=== PATIENT | female | born 1990 | race Caucasian/White ===

== ENCOUNTER → 2022-09-16 | Outpatient (CLI) | payer OTHER, SELFPAY ==
[2022-09-16 15:39] LABS: Absolute Lymphocyte Count 1.91 X10^3/uL (0.83-4.51); Absolute Neutrophil Count 6.4 X10^3/uL (2.0-7.7); Basophil# 0.04 X10^3/uL; Basophil% 0.4 % (0-1); Eosinophil# 0.08 X10^3/uL; Eosinophils% 0.9 % (0-5); Hematocrit 38.1 % (37-47); Hemoglobin 12.8 g/dL (12.0-15.0); Lymphocyte # 1.91 X10^3/ul (0.83-4.51); Lymphocyte % 21.2 % (19-41); Mean Corp Hgb Conc 33.6 g/dL (32-36); Mean Corpuscular Hgb 31.2 pg (27.0-32.0); Mean Corpuscular Volume 92.9 fL (81-99); Mean Platelet Vol. 9.9 fl (6.2-12.0); Monocyte# 0.53 X10^3/uL; Monocyte% 5.9 % (0-10); NRBC Flagged by Analyzer 0 % (0-5); Neutrophil # 6.37 X10^3/uL (2.7-7.7); Neutrophil % 70.7 % (47-70); Platelet Count 307 K/mm3 (150-450); RBC Distribution Width CV 11.5 % (11.6-14.6); RBC Distribution Width SD 39.1 fl (35.1-43.9)
[2022-09-16 16:35] LABS: HIV - WCH Non-Reactive (Nonreactive); Hepatitis B Surface Antigen Non-Reactive (Nonreactive); Hepatitis C Antibody Non-Reactive (Nonreactive); Rubella IgG Reactive (Nonreactive); Syphilis Antibodies Non-reactive
[2022-09-18 07:08] LABS: V-Zoster IgG (Immunity) < 135 index (Immune >165)
[2022-09-22 14:09] LABS: HPV APTIMA, High Risk Negative (Negative)
== END | disposition home or self-care (01) ==
LOC: WOBLAB 14:31
PROVIDERS: Visit Provider Obstetrics & Gynecology
DX: Z34.81 Encounter for supervision of other normal pregnancy, first trimester (principal); Z3A.00 Weeks of gestation of pregnancy not specified
CPT/HCPCS: 36415; 85025; 86703; 86762; 86780; 86787; 86803; 87086; 87088; 87340; 87624; 88175; G0145

== ENCOUNTER → 2022-10-27 | Outpatient (CLI) | payer OTHER, SELFPAY | END | disposition home or self-care (01) | PROVIDERS: Visit Provider Student in an Organized Health Care Education/Training Program | DX: Z36.3 Encounter for antenatal screening for malformations (principal); Z3A.13 13 weeks gestation of pregnancy | CPT/HCPCS: 36415 ==

== ENCOUNTER → 2022-11-20 | Outpatient (CLI) | payer OTHER, SELFPAY | END | disposition home or self-care (01) | PROVIDERS: Visit Provider Obstetrics & Gynecology | DX: Z34.82 Encounter for supervision of other normal pregnancy, second trimester (principal); Z3A.00 Weeks of gestation of pregnancy not specified | CPT/HCPCS: 36415 ==

== ENCOUNTER → 2023-01-27 | Outpatient (CLI) | payer OTHER, SELFPAY ==
[2023-01-27 10:37] LABS: Absolute Lymphocyte Count 1.62 X10^3/uL (0.83-4.51); Absolute Neutrophil Count 8.1 X10^3/uL (2.0-7.7); Basophil# 0.05 X10^3/uL; Basophil% 0.5 % (0-1); Eosinophil# 0.11 X10^3/uL; Hematocrit 36.4 % (37-47); Hemoglobin 12.3 g/dL (12.0-15.0); Lymphocyte # 1.62 X10^3/ul (0.83-4.51); Lymphocyte % 15.4 % (19-41); Mean Corp Hgb Conc 33.8 g/dL (32-36); Mean Corpuscular Hgb 30.9 pg (27.0-32.0); Mean Corpuscular Volume 91.5 fL (81-99); Mean Platelet Vol. 9.8 fl (6.2-12.0); Monocyte# 0.44 X10^3/uL; Monocyte% 4.2 % (0-10); NRBC Flagged by Analyzer 0 % (0-5); Neutrophil # 8.08 X10^3/uL (2.7-7.7); Platelet Count 215 K/mm3 (150-450); RBC Distribution Width CV 12.6 % (11.6-14.6); RBC Distribution Width SD 41.2 fl (35.1-43.9); Red Blood Count 3.98 M/mm3 (4.2-5.4); White Blood Count 10.5 K/mm3 (4.4-11.0)
[2023-01-27 11:14] LABS: Glucose Challenge Gest 1H 50g 172 mg/dL (70-140)
[2023-01-27 11:47] LABS: HIV - WCH Non-Reactive (Nonreactive); Syphilis Antibodies Non-reactive
== END | disposition home or self-care (01) ==
PROVIDERS: Referring Provider Nurse Practitioner Women's Health; Visit Provider Nurse Practitioner Women's Health
DX: Z34.90 Encounter for supervision of normal pregnancy, unspecified, unspecified trimester (principal); Z3A.00 Weeks of gestation of pregnancy not specified
CPT/HCPCS: 36415; 82950; 85025; 86703; 86780

== ENCOUNTER → 2023-03-04 | Outpatient (CLI) | payer OTHER, SELFPAY ==
[2023-03-04 11:07] LABS: Glucose GTT-Gestation. Fasting 84 mg/dL (<105)
[2023-03-04 12:27] LABS: Glucose GTT-Gestational 1 Hr 197 mg/dL (<190)
[2023-03-04 13:56] LABS: Glucose GTT-Gestational 3 Hr 53 L (<145)
[2023-03-04 14:00] LABS: Glucose GTT-Gestational 2 Hr 129 mg/dL (<165)
== END | disposition home or self-care (01) ==
PROVIDERS: Referring Provider Nurse Practitioner Women's Health; Visit Provider Nurse Practitioner Women's Health
DX: Z13.1 Encounter for screening for diabetes mellitus (principal)
CPT/HCPCS: 36415; 82951; 82952

== ENCOUNTER → 2023-03-24 | Outpatient (CLI) | payer OTHER, SELFPAY ==
[2023-03-24 14:44] LABS: Group B Strep DNA By PCR Negative (Negative); Internal Control PASS; Probe Check PASS; Specimen Processing Control PASS
== END | disposition home or self-care (01) ==
LOC: LABSPEC 13:04
PROVIDERS: Visit Provider Registered Nurse
DX: Z34.90 Encounter for supervision of normal pregnancy, unspecified, unspecified trimester (principal); Z3A.00 Weeks of gestation of pregnancy not specified
CPT/HCPCS: 87081; 87653

== ENCOUNTER 2023-04-26 19:08 | Inpatient (IN) | payer BC, SELFPAY ==
--- OUTSIDE RECORDS SUMMARY | 2023-04-26 19:11 | XMS RPT_ITS | CCD ---
Author Name Unknown Address [facility] [place] [address] Organization [facility] Care Team Providers Care Plate Stacker Name Role Phone Nba Bunch MD Primary Care Provider [phone] PHYSICIAN, NONE Primary Care Physician Unavailab ARACELI Estrella Attending Unav ailable PHYSICIAN, NONE Primary Care Unavailable Nba Bunch MD Primary Care Provider [phone] NBA BUNCH Primary Care Unavailable JASMINE MCCOLLUM Attending Unavailable NBA BUNCH Primary Care Unavailable Medications Completed/Discontinued Medications Medication Drug Class(es) Dates Sig (Normalized) Sig (Original) amoxicillin 500 mg oral capsule (2 sources) Penicillin-class Antibacterial Start: 02-12-2023 take 1 capsule by mouth every twelve hours amoxicillin (AMOXIL) 500 mg capsule Take 1 capsule by mouth every 12 hours. 0 02/12/2023 Active Problems Problem Classification Problem Date Documented Date Episodic/Chronic Immunizations and screening for infectious disease (2 sources) Viral screening status; Translations: [Encounter for screening for other viral diseases] Episodic Inflammation; infection of eye (except that caused by tuberculosis or sexually transmitteddisease) (1 source) Acute conjunctivitis of right eye; Translations: [Unspecified acute conjunctivitis, right eye] 02-13-2023 Episodic Menstrual disorders (2 sources) Secondary amenorrhea; Translations: [Secondary amenorrhea] Onset: 09-16-2022 Chronic Other and delivery including normal (1 source) Onset: 07-12-2022 09-16-2022 Episodic Other upper respiratory infections (2 sources) Acute upper respiratory infection; Translations: [Acute upper respiratory infection, unspecified] 02-13-2023 Episodic Results Test Name Value Interpretation Reference Range Facil ity Vital Signs Date Time Vital Sign Value Performing Clinician Esa bunny 02-13-2023 09:43-0500 Body temperature 97 [degF] Shadi Humphreys MD Work Phone: [facility] 02-13-2023 09:43-0500 Body weight 89.36 kg Shadi Humphreys MD Work Phone: [facility] 02-13-2023 09:43-0500 Diastolic blood pressure 80 mm[Hg] Shadi Humphreys MD Work Phone: [facility] 02-13-2023 09:43-0500 Heart rate 106 /min Shadi Humphreys MD Work Phone: [facility] 02-13-2023 09:43-0500 Respiratory rate 18 /min Shadi Humphreys MD Work Phone: [facility] 02-13-2023 09:43-0500 SaO2% (BldA) [Mass fraction] 98 % Shadi Humphreys MD Work Phone: [facility] 02-13-2023 09:43-0500 Systolic blood pressure 124 mm[Hg] Shadi Humphreys MD Work Phone: [facility] 07-16-2021 12:49-0400 Body height 167.6 cm Jasmine Older [employer]HE[employer] BEADER.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 Work Phone: [facility] 07-16-2021 12:49-0400 Body weight 70.76 kg Jasmine Older [employer]OCHET BEADER.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 Work Phone: [facility] 07-16-2021 12:49-0400 Diastolic blood pressure 78 mm[Hg] Jasmine Older CROCHET BEADER.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 Work Phone: [facility] 07-16-2021 12:49-0400 Heart rate 90 /min Jasmine Older CROCHET BEADER.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 Work Phone: [facility] 07-16-2021 12:49-0400 Respiratory rate 14 /min Jasmine Older CROCHET BEADER.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 Work Phone: [facility] 07-16-2021 12:49-0400 SaO2% (BldA) [Mass fraction] 99 % Jasmine Older CROCHET BEADER.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 Work Phone: [facility] 07-16-2021 12:49-0400 Systolic blood pressure 112 mm[Hg] Jasmine Older CROCHET BEADER.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 Work Phone: [facility] Encounters Encounter Date Encounter Type Care Provider Facility Start: 04-09-2023 End: 04-09-2023 ambulatory NBA Garcia ALIVIA Facility:[facility] Start: 02-14-2023 Telephone encounter Lisa Richard CROCHET BEADER.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 Work Phone: [facility] Procedures Date Procedure Procedure Detail Performing Clinician Start: 02-13-2023 STREP A MOLECULAR (POC) Shadi Humphreys MD Work Phone: Start: 07-16-2021 Adult depression screening assessment Jasmine Older [employer]OCHET BEADER.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 Work Phone: Plan of Treatment Date Care Activity Detail Author Start: 01-27-2033 Urine microalbumin profile DTaP,Tdap,Td Vaccine (7 - Td or Tdap) [facility] Start: 02-13-2023 End: 02-27-2023 COVID & INFLUENZA A/B & RSV NAAT, ROUTINE COVID & INFLUENZA A/B & RSV NAAT, ROUTINE Microbiology Routine URI, acute Acute conjunctivitis of right eye, unspecified acute conjunctivitis type Sore throat Expected: 02/13/2023, Expires: 02/27/2023 [facility] Work Phone: Immunizations Immunization Date Immunization Notes Care Provider Wilmer byers 11-06-2000 measles, mumps and rubella virus vaccine Jasmine Older [employer]OCHET BEADER.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 Work Phone: [facility] 07-26-1993 diphtheria, tetanus toxoids and acellular pertussis vaccine Jasmine Older CROCHET BEADER.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 Work Phone: [facility] 07-26-1993 trivalent poliovirus vaccine, live, oral Jasmine Older CROCHET BEADER.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 Work Phone: [facility] 02-05-1990 diphtheria, tetanus toxoids and acellular pertussis vaccine Jasmine Older CROCHET BEADER.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 Work Phone: [facility] 02-05-1990 haemophilus influenz ae type b vaccine, HbOC conjugate Jasmine Older CROCHET BEADER.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 Work Phone: [facility] 02-05-1990 trivalent poliovirus vaccine, live, oral Jasmine Older CROCHET BEADER.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 Work Phone: [facility] 11-13-1989 measles, mumps and rubella virus vaccine Jasmine Older CROCHET BEADER.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 Work Phone: [facility] 01-28-1989 DTaP-Haemophilus influenzae type b conjugate vaccine Jasmine Older CROCHET BEADER.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 Work Phone: [facility] 1988 DTaP-Haemophilus influenzae type b conjugate vaccine Jasmine Older CROCHET BEADER.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 Work Phone: [facility] 1988 trivalent poliovirus vaccine, live, oral Jasmine Older CROCHET BEADER.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 Work Phone: [facility] 1990 DTaP-Haemophilus influenzae type b conjugate vaccine Jasmine Older CROCHET BEADER.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 Work Phone: [facility] 1988 trivalent poliovirus vaccine, live, oral Jasmine Older CROCHET BEADER.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 Work Phone: [facility] Payers Date Payer Category Payer Unknown [id number] 2022 Unknown MMO [employer] [id number] 2022-Present [phone] [address] [place] [address] Indemnity [id number] 2021 Unknown [facility] [id number] 2021-Present [phone] [address] [place], [place] [address] [id number] 1988 Unknown [id number] Social History Date Type Detail Facility Start: 03-19-2017 End: 02-13-2023 Tobacco smoking status NHIS Ex-smoker [facility] End: 03-19-2016 History of tobacco use Current smoker [facility] End: 03-19-2016 History of tobacco use Cigarette Smoker [facility] Start: 03-19-2017 End: 02-13-2023 Tobacco use and exposure Smokeless tobacco non-user [facility] Start: 07-16-2021 End: 02-13-2023 Alcohol intake Current drinker of alcohol (finding) [facility] Start: 03-12-2020 End: 07-16-2021 Alcohol intake [facility] Work Phone: Start: 1990 Sex Assigned At Not on file [facility] Start: 09-16-2022 Tobacco smoking status Never s moked tobacco (finding) [facility] Sex Assigned At Sex [facility] Start: 03-12-2020 End: 02-13-2023 Tobacco use panel [facility] Work Phone: Adult Depression Screening Assessment 0 [facility] Work Phone: Start: 02-13-2023 Tobacco Comment less than 1/2 pack per day [facility] Clinical Notes 09-12-2008 to 04-09-2023 Telephone Encounter - Jocelyne Pina Ma - 02/16/2023 10:49 AM ESTTelephone Encounter - Naomi Valladares - 02/14/2023 8:39 AM Shadi Mccartney MD - 02/13/2023 9:57 AM EST Note Date & Type Note Facility 04-09-2023 Note HNO ID: [id number] Author: JASMINE MCCOLLUM APRN.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 Service: ? Author Type: Nurse Practitioner Type: Progress Notes Filed: 04/09/2023 14:11 Note Text: CC: Patient presents with: Cough Head Congestion Sore Throat HPI Isabella Simons is a 32 year old female who presents today for above. She developed URI symptoms around two months ago. She was treated with Amoxicillin and all symptoms resolved except for sore throat and post nasal drainage. She is about 38 weeks . She started taking Mucinex today for her symptoms. Denies history of seasonal/environmental allergies or asthma. She does have frequent heartburn and reflux, treating with Pepcid daily. Denies any new or worsening symptoms over the past two months. Feeling well overall. Review of Systems Constitutional: Negative for chills, diaphoresis, fatigue, fever and unexpected weight change. HENT: Positive for postnasal drip, sinus pressure and sore throat. Negative for ear pain, sinus pain and trouble swallowing. Respiratory: Positive for cough (non-productice, worse in the mornings). Negative for chest tightness, shortness of breath and wheezing. Cardiovascular: Negative for chest pain and palpitations. PAST MEDICAL HISTORY Diagnosis Date Enlargement of lymph nodes 12/09/2007 Irritable bowel syndrome 09/12/2008 History reviewed. No pertinent surgical history. ALLERGIES Patient has no known allergies. MEDICATIONS multivitamin tablet Take 1 tablet by mouth once daily. FAMILY HISTORY Problem Relation Age of Onset No Known Problems Mother Liver Disease Father cirhossis other (other) Brother spina bifida/multiple handicaps Prostate Cancer Maternal Grandfather Ovarian cancer Paternal Grandmother Colon Cancer Paternal Grandfather Social History Tobacco Use Smoking status: Former Years: 1 Types: Cigarettes Quit date: 03/19/2016 Years since quittin.0 Smokeless tobacco: Never Tobacco comments: less than 1/2 pack per day Vaping Use Vaping Use: current everyday user Substances: Nicotine, Flavoring Substance Use Topics Alcohol use: Yes Alcohol/week: 27.3 standard drinks of alcohol Types: 21 Mixed Drinks per week Drug use: No BP 114/72 Pulse 111 Temp 36.7 ?C (98 ?F) (Temporal) Resp 18 Wt 98.4 kg (217 lb) LMP 10/19/2013 SpO2 98% BMI 35.02 kg/m? Physical Exam Vitals reviewed. Constitutional: Appearance: Normal appearance. She is not ill-appearing. HENT: Right Ear: Tympanic membrane normal. Left Ear: Tympanic membrane normal. Nose: No mucosal edema. Right Sinus: No maxillary sinus tenderness or frontal sinus tenderness. Left Sinus: No maxillary sinus tenderness or frontal sinus tenderness. Mouth/Throat: Lips: [place]. Mouth: Mucous membranes are moist. Pharynx: Posterior oropharyngeal erythema (mild) present. No pharyngeal swelling. Tonsils: No tonsillar exudate. Eyes: Conjunctiva/sclera: Conjunctivae normal. Cardiovascular: Rate and Rhythm: Normal rate and regular rhythm. Heart sounds: Normal heart sounds. No murmur heard. Pulmonary: Effort: Pulmonary effort is normal. Breath sounds: Normal breath sounds and air entry. No wheezing, rhonchi or rales. Musculoskeletal: Cervical back: Neck supple. Lymphadenopathy: Cervical: No cervical adenopathy. Skin: General: Skin is warm and dry. Neurological: Mental Status: She is alert. ASSESSMENT/PLAN: 1. Post-nasal drainage - ICD9: 473.9, ICD10: R09.82 (primary diagnosis) Differentials include allergic rhinitis, GERD, induced Start Flonase OTC. Increase pepcid to twice a day. Okay to continue with Mucinex Follow-up as needed for any new or worsening symptoms. 2. Sore throat - ICD9: 462, ICD10: J02.9 As above Prescription instructions reviewed with patient as applicable. Potential red flag symptoms discussed with the patient. Reviewed appropriate action plan to take if red flag symptoms occur. Patient agreeable to treatment plan. Jasmine Mccollum APRN.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 [facility] 02-16-2023 Miscellaneous Notes Pt notified. Jocelyne Pina Ma Left message for patient to return call. Naomi Valladares Negative for flu COVID and RSV please notify. If symptoms or not improving patient should follow-up with primary care documented in this encounter [facility] 02-13-2023 Note HNO ID: [id number] Author: Shadi Humphreys MD Service: ? Author Type: Physician Type: Progress Notes Filed: 02/13/2023 10:43 AM Note Text: Patient presents with: Nasal Congestion: x 8 days, chest congestion and cough x 5 days, right eye redness and drainage x today-7 months HPI: Feeling sick for 8 days. Positive symptoms: Cough, Nasal Congestion, Rhinorrhea, right eye discharge/irritation, Shortness of breath, Wheezing, Sore throat, Body Aches, sinus pressure, Chest tightness Negative symptoms: Chills, Nausea, Vomiting, Diarrhea, OTC: Mucinex, Tylenol, OB prescribed amoxicillin yesterday for sore throat (no strep test). Home COVID test negative 3 days ago. Currently 7 months , movement today. No Hx of asthma. PHx of smoking. PAST MEDICAL HISTORY Diagnosis Date Enlargement of lymph nodes 12/09/2007 Irritable bowel syndrome 09/12/2008 MEDICATIONS: Current Outpatient Medications Medication Sig multivitamin tablet Take 1 tablet by mouth once daily. amoxicillin (AMOXIL) 500 mg capsule Take 1 capsule by mouth every 12 hours. No current facility-administered medications for this visit. ALLERGIES: ALLERGIES No Known Allergies VITALS: BP 124/80 Pulse 106 Temp 36.1 ?C (97 ?F) Resp 18 Wt 89.4 kg (197 lb) LMP 10/19/2013 SpO2 98% BMI 31.80 kg/m? PHYSICAL EXAM: GEN: mildly ill appearing HEENT: PERRL, EOMI, left conjunctiva clear, moderate right conjunctival injection, watery discharge Ears: canals clear. TMs without erythema, bulge, or effusion Sinuses: non-tender frontal sinus, non-tender maxillary sinuses Throat: moist mucous membranes, mild erythema, no exudate Neck: supple, no thyromegaly, no lymphadenopathy HEART: regular rate and rhythm, no murmurs LUNGS: clear to auscultation, no wheezes or crackles after raspy cough, no increased WOB ASSESSMENT/PLAN: 1. URI, acute - ICD9: 465.9, ICD10: J06.9 (primary diagnosis) 2. Acute conjunctivitis of right eye, unspecified acute conjunctivitis type - ICD9: 372.00, ICD10: H10.31 3. Sore throat - ICD9: 462, ICD10: J02.9 - STREP A MOLECULAR (POC) - negative. Sore throat and conjunctivitis are likely viral symptoms. - suspect viral URI, differential includes COVID-19. - Discussed supportive care treatment with rest, OB approved cold medicine, and analgesia. She may continue amoxicillin for sinus symptoms not improving after 1 week which can represent secondary bacterial sinusitis. - Red flags to seek further treatment include chest pain, shortness of breath, and lethargy; in the ER if severe. - COVID AND INFLUENZA A/B AND RSV NAAT, ROUTINE [place] eye discussed. Infectious conjunctivitis is most commonly caused by cold viruses and is a self-limited condition which usually resolves in about a week. Bacterial conjunctivitis usually follows a similar course, but symptoms and contagiousness are responsive to antibiotics. Bacterial infection can rarely progress to more serious infection. Hand hygiene with washing or clinical courier is important to reduce spread of the infection. Seek re-evaluation for high fever, increasing periocular redness/swelling, eye pain, or vision change as these can be symptoms of serious infection. Shadi Humphreys MD [facility] 02-13-2023 History of Presen t illness Narrative Patient presents with: Nasal Congestion: x 8 days, chest congestion and cough x 5 days, right eye redness and drainage x today-7 months HPI: Feeling sick for 8 days. Positive symptoms: Cough, Nasal Congestion, Rhinorrhea, right eye discharge/irritation, Shortness of breath, Wheezing, Sore throat, Body Aches, sinus pressure, Chest tightness Negative symptoms: Chills, Nausea, Vomiting, Diarrhea, OTC: Mucinex, Tylenol, OB prescribed amoxicillin yesterday for sore throat (no strep test). Home COVID test negative 3 days ago. Currently 7 months , movement today. No Hx of asthma. PHx of smoking. PAST MEDICAL HISTORY Diagnosis Date Enlargement of lymph nodes 12/09/2007 Irritable bowel syndrome 09/12/2008 MEDICATIONS: Current Outpatient Medications Medication Sig multivitamin tablet Take 1 tablet by mouth once daily. amoxicillin (AMOXIL) 500 mg capsule Take 1 capsule by mouth every 12 hours. No current facility-administered medications for this visit. ALLERGIES: ALLERGIES No Known Allergies VITALS: BP 124/80 Pulse 106 Temp 36.1 C (97 F) Resp 18 Wt 89.4 kg (197 lb) LMP 10/19/2013 SpO2 98% BMI 31.80 kg/m PHYSICAL EXAM: GEN: mildly ill appearing HEENT: PERRL, EOMI, left conjunctiva clear, moderate right conjunctival injection, watery discharge Ears: canals clear. TMs without erythema, bulge, or effusion Sinuses: non-tender frontal sinus, non-tender maxillary sinuses Throat: moist mucous membranes, mild erythema, no exudate Neck: supple, no thyromegaly, no lymphadenopathy HEART: regular rate and rhythm, no murmurs LUNGS: clear to auscultation, no wheezes or crackles after raspy cough, no increased WOB ASSESSMENT/PLAN: 1. URI, acute - ICD9: 465.9, ICD10: J06.9 (primary diagnosis) 2. Acute conjunctivitis of right eye, unspecified acute conjunctivitis type - ICD9: 372.00, ICD10: H10.31 3. Sore throat - ICD9: 462, ICD10: J02.9 - STREP A MOLECULAR (POC) - negative. Sore throat and conjunctivitis are likely viral symptoms. - suspect viral URI, differential includes COVID-19. - Discussed supportive care treatment with rest, OB approved cold medicine, and analgesia. She may continue amoxicillin for sinus symptoms not improving after 1 week which can represent secondary bacterial sinusitis. - Red flags to seek further treatment include chest pain, shortness of breath, and lethargy; in the ER if severe. - COVID & INFLUENZA A/B & RSV NAAT, ROUTINE [place] eye discussed. Infectious conjunctivitis is most commonly caused by cold viruses and is a self-limited condition which usually resolves in about a week. Bacterial conjunctivitis usually follows a similar course, but symptoms and contagiousness are responsive to antibiotics. Bacterial infection can rarely progress to more serious infection. Hand hygiene with washing or clinical courier is important to reduce spread of the infection. Seek re-evaluation for high fever, increasing periocular redness/swelling, eye pain, or vision change as these can be symptoms of serious infection. Shadi Humphreys MD documented in this encounter [facility] 09-18-2022 Note . MICRO - Microbiology PROCEDURE: Urine Culture [*1] SOURCE: Urine, Clean Catch BODY SITE: COLLECTED DATE/TIME: 09/16/2022 10:48 EDT RECEIVED DATE/TIME: 09/16/2022 19:28 EDT START DATE/TIME: 09/16/2022 19:28 EDT FREE TEXT SOURCE: FINAL REPORTS Final Report [] Verified Date/Time/Personnel: 09/18/2022 07:44 EDT 10,000 - 50,000 cfu/ml Multiple bacterial morphotypes present. Probable Contamination. Suggest recollection if clinically indicated. PRELIMINARY REPORTS Preliminary Report [] Verified Date/Time/Personnel: 09/17/2022 10:24 EDT No growth to date Performing Locations *1: This test was performed at: [facility], [address] [place] [address], [facility] , [facility] ([place]) 07-16-2021 History of Presen t illness Narrative CC: Patient presents with: Physical: transfer from Dr. Escobar [facility] Isabella Simons is a 31 year old female who presents today for above. Denies any concerns or issues today. Hasn't been seen in primary care since 2008 Exercise- cardio, weights about 5-6 days per week Diet-overall healthy REVIEW OF SYSTEMS General: no fevers, no chills, no night sweats, no recurrent infections, no change in energy and no significant changes in weight HEENT: no frequent or significant headaches, no changes in hearing, no visual changes, no sinus or nasal problems Respiratory: no cough, no wheezing, no shortness of breath Cardiovascular: no chest pain, no chest pressure, no palpitations and no swelling GI: Negative for abdominal discomfort, blood in stools or black stools, change in bowel habit, heart burn, nausea, vomiting : Negative for dysuria, frequency, incontinence and nocturia >1 Musculoskeletal: Negative for joint pain or swelling, back pain or muscle pain Psych: Negative for sleep disturbance, mood disorder and recent psychosocial stressors PAST MEDICAL HISTORY Diagnosis Date Enlargement of lymph nodes 12/09/2007 Irritable bowel syndrome 09/12/2008 History reviewed. No pertinent surgical history. ALLERGIES Patient has no known allergies. MEDICATIONS No prescriptions on file. FAMILY HISTORY Problem Relation Age of Onset No Known Problems Mother Liver Disease Father cirhossis other (other) Brother spina bifida/multiple handicaps Prostate Cancer Maternal Grandfather Ovarian cancer Paternal Grandmother Colon Cancer Paternal Grandfather Social History Tobacco Use Smoking status: Former Smoker Years: 1.00 Types: Cigarettes Quit date: 03/19/2016 Years since quittin.3 Smokeless tobacco: Never Used Tobacco comment: less than 1/2 pack per day Vaping Use Vaping Use: current everyday user Substances: Nicotine, Flavoring Substance Use Topics Alcohol use: Yes Alcohol/week: 27.3 standard drinks Types: 21 Mixed Drinks per week Drug use: No PHYSICAL EXAM BP 112/78 Pulse 90 Resp 14 Ht 167.6 cm (5' 6 ) Wt 70.8 kg (156 lb) LMP 10/19/2013 SpO2 99% BMI 25.18 kg/m General Appearance: well appearing, in no acute distress, alert Pysch: mood and affect broad and appropriate Skin: Skin color, texture, turgor normal for age; Eyes: conjunctiva pink and moist, no icterus, sclera white, non-injected Neck: Thyroid normal size and symmetric without palpable nodules, Neck supple, No adenopathy Lymph nodes: No supraclavicular lymphadenopathy Lungs: Lungs clear to auscultation. No wheezing, rhonchi, rales. Heart: RRR without murmur, gallop, or rubs. No ectopy Abdomen: Abdomen soft, non-tender. Bowel sounds normal. No masses, organomegaly Ext: no edema in LE bilaterally, good distal pulses Health maintenance reviewed with patient: DTAP,TDAP,TD(6 - Tdap) due on 07/15/1999 HEPATITIS C SCREENING Never done HIV SCREENING Never done ONE PNEUMOVAX PRIOR TO AGE 65 Never done PAP TESTING Never done DEPRESSION SCREENING due on 03/19/2018 HPV TESTING Never done COVID-19 VACCINE(1) due on 07/16/2022 INFLUENZA(Season Ended) due on 12/04/2021 MENINGOCOCCAL CONJUGATE Aged Out DATA REVIEWED: Most recent labs ASSESSMENT/PLAN: 1. Wellness examination - ICD9: V70.0, ICD10: Z00.00 (primary diagnosis) - Counseled on healthy diet and regular exercise - Calcium intake with supplements or by diet of 1000 mg/day for under 50, 2281-1806 mg/day for 50+ - Counseled patient on limiting alcohol intake to 1 drink per day - Depression screening tool completed and reviewed with patient. Based on score and interview, patient is not at risk for depression and recommended no further intervention at this time. - Patient was counseled [id number] by myself (the billing provider) for the following immunizations and vaccine components, including side effects: COVID-19 and DTaP. Patient declined - Follow up for annual exam in one year 2. Special screening examination for viral disease - ICD9: V73.99, ICD10: Z11.59 - HEP C AB IA W/CONF SCRN 3. Encounter for well woman exam - ICD9: V72.31, ICD10: Z01.419 Patient pverdue for PAP/HPV - CONSULT TO [facility]OM[facility] 4. Screening for HIV (human immunodeficiency virus) - ICD9: V73.89, ICD10: Z11.4 - HIV 1 2 COMBO(AG/AB),WITH REFLEX TO DIFFERENTIATION Prescription instructions reviewed with patient as applicable. Potential red flag symptoms discussed with the patient. Reviewed appropriate action plan to take if red flag symptoms occur. Patient agreeable to treatment plan. Jasmine Mcguire APRN.CNP documented in this encounter [facility] documented as of this encounter (statuses as of 07/16/2021) [facility]06-10[facility]2009 History of Past illness Narrative* Problem Noted Date Diagnosed Date Resolved Date Irritable bowel syndrome 09/12/2008 Enlargement of lymph nodes 12/09/2007 0 07/16/2021 documented as of this encounter (statuses as of 02/13/2023) [facility] History of Past illness Narrative* Problem Noted Date Diagnosed Date Resolved Date Irritable bowel syndrome 09/12/2008 Enlargement of lymph nodes 12/09/2007 0 07/16/2021 documented as of this encounter (statuses as of 02/16/2023) [facility] Future Appointments Appointment Date:10/14/2022 10:00:00 AM Scheduled Provider:ARACELI ROWAN Location:[facility] Appointment Type: OV OB Routine Follow Up Future Scheduled Tests Laboratory* ABO/Rh (Gel) 09/16/22 * Type and Screen (AO) 09/16/22 * Hepatitis B Surface Antigen 09/16/22 * Rapid Plasma Reagin Test 09/16/22 * Rubella Antibody 09/16/22 * Complete Blood Count 09/16/22 * Hepatitis C Antibody IgG 09/16/22 * HIV 1/2 Ab 09/16/22 * Varicella Zoster Antibody 09/16/22 * Complete Metabolic Panel 09/16/22 * [facility] Send out (Blood Specimens) 09/16/22 * [facility] Send out (Blood Specimens) 09/16/22 [facility] Evaluation note* Diagnosis Wellness examination- Primary Special screening examination for viral disease Special screening examination for unspecified viral disease Encounter for well woman exam Screening for HIV (human immunodeficiency virus) Special screening examination for other specified viral diseases documented in this encounter [facility] Diagnosis URI, acute- Primary Acute upper respiratory infections of unspecified site Acute conjunctivitis of right eye, unspecified acute conjunctivitis type Sore throat Acute pharyngitis documented in this encounter [facility] course Narrative No data available for this section [facility] Hospital Discharge instructions No data available for this section [facility] Progress note No data available for this section [facility] Reason for Referral Specialty Diagnoses / Procedures Referred By Sai harris Referred To Contact Diagnoses Encounter for well woman exam Procedures CONSULT TO [facility]OM[facility]S [facility] OFFICE/OUTPATIENT [facility] 60-74 MINUTES Older, SANTI Ferraro.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 [address] [place] [address] Referral ID Status Reason Start Date Expiration Date Visits Requested Visits Authorized [id number] Pending Review PCP Requested Referral Auto-Generate d Referral 07/16/2021 07/16/2022 1 1 Summary Purpose Family History No Family History Records FoundNo Family History Records Found Advance Directives No Advanced Directives Records FoundNo Advanced Directives Records Found Health Concerns Infection Onset Date Last Indicated Resolved Time COVID-19 Rule-Out 02/13/2023 02/13/2023 Additional Source Comments Source Comments (unrecognize d section and content) In the event this informatio n is protected by the Federal Confidentiality of Alcohol and Drug Abuse Patient Records regulations: The Federal rules restrict any use of the information to criminally investigate or prosecute any alcohol or drug abuse patient.[facility] the event this information is protected by the Federal Confidentiality of Alcohol and Drug Abuse Patient Records regulations: The Federal rules restrict any use of the information to criminally investigate or prosecute any alcohol or drug abuse patient.[facility] the event this information is protected by the Federal Confidentiality of Alcohol and Drug Abuse Patient Records regulations: The Federal rules restrict any use of the information to criminally investigate or prosecute any alcohol or drug abuse patient.[facility] Reason for Visit (unrecogniz ed section and content) Specialty Diagnoses / Procedures Referred By Sai harris Referred To Contact Internal Medicine / INTERNAL MEDICINE Diagnoses Physical former pt of Dr Luz PRETTY Procedures 4C NEW WELL Self Older, Jasmine, CROCHET BEADER.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 [address] [place] [address] Referral ID Status Reason Start Date Expiration Date Visits Re quested Visits Authorized [id number] Denied 07/16/2021 10/14/2021 1 0 Reason Comments Nasal Congestion x 8 days, chest gem estion and cough x 5 days, right eye redness and drainage x today-7 months Reason Comments Results Care Teams (unrecognized sec tion and content) Plate Stacker Relationship Specialty Start Date End Date Nba Bunch MD [address] [place] [address] PCP - General Internal Medicine 07/16/21 Plate Stacker Relationship Specialty Start Date End Date Nba Bucnh MD [address] [place] [address] PCP - General Internal Medicine 07/16/21 INFORMATION SOURCE (unrecogn ized section and content) DATE CREATED AUTHOR AUTHOR'S ORGANIZ ATION 04/11/2023 [facility] FOR RECORDS PERTAINING TO PATIENTS WHO ARE OR HAVE BEEN ENROLLED IN A CHEMICAL DEPENDENCY/SUBSTANCEABUSE PROGRAM, SOME INFORMATION MAY BE OMITTED. This clinical summary was aggregated from multiple sources. Caution should be exercised in using it in the provision of clinical care. This summary normalizes information from multiple sources, and as a consequence, information in this document may materially change the coding, format and clinical context of patient data. In addition, data may be omitted in some cases. CLINICAL DECISIONS SHOULD BE BASED ON THE PRIMARY CLINICAL RECORDS. [employer] provides no warranty or guarantee of the accuracy or completeness of information in this document.
[2023-04-26 19:25] VITALS: TEMP 37.7; O2SAT 97
[2023-04-26 19:26] VITALS: BP 130/79; PULSE 117
[2023-04-26] MEDS: Lactated Ringers 1,000 ML 50 ML IV (19:40)
[2023-04-26] MEDS: 0.9% Saline Lock 10 ML Syringe IV (19:40)
[2023-04-26 19:50] VITALS: BMI 35.9
[2023-04-26 19:58] LABS: Absolute Lymphocyte Count 1.67 X10^3/uL (0.83-4.51); Basophil# 0.05 X10^3/uL; Basophil% 0.4 % (0-1); Eosinophil# 0.02 X10^3/uL; Eosinophils% 0.1 % (0-5); Hematocrit 43.4 % (37-47); Hemoglobin 14.9 g/dL (12.0-15.0); Lymphocyte # 1.67 X10^3/ul (0.83-4.51); Lymphocyte % 12.3 % (19-41); Mean Corp Hgb Conc 34.3 g/dL (32-36); Mean Corpuscular Hgb 30.8 pg (27.0-32.0); Mean Corpuscular Volume 89.7 fL (81-99); Mean Platelet Vol. 11.2 fl (6.2-12.0); Monocyte# 0.67 X10^3/uL; Monocyte% 4.9 % (0-10); NRBC Flagged by Analyzer 0 % (0-5); Neutrophil # 11.01 X10^3/uL (2.7-7.7); Neutrophil % 81.3 % (47-70); Platelet Count 239 K/mm3 (150-450); RBC Distribution Width CV 12.6 % (11.6-14.6); RBC Distribution Width SD 41.3 fl (35.1-43.9); Red Blood Count 4.84 M/mm3 (4.2-5.4); White Blood Count 13.6 K/mm3 (4.4-11.0)
[2023-04-26] MEDS: miSOPROStol 25 MCG TABLET VAGINAL (20:07)
[2023-04-26 20:46] LABS: Syphilis Antibodies Non-reactive
[2023-04-27] VITALS (46 sets, daily range): BP systolic 82–150; BP diastolic 51–96; PULSE 64–122; RESP 16–18; TEMP 36.2–37.5; O2SAT 77–100
[2023-04-27] MEDS: miSOPROStol 25 MCG TABLET VAGINAL ×2 (00:08→04:11)
--- NOTE | 2023-04-27 04:12 | HP.PCM.OB_ITS ---
HPI - General General Date of Admission: 04/26/23 Date of Service: 04/26/23 Chief Complaint: induction of labor HPI Narrative HUSSAIN HERNANDEZ, is a 32 F who presents at 41.1 for postdates induction. no vb/ctx/lof. good fm. Maternal Data Information PARMINDER Calculator Estimated Delivery Date Method Current WG Current Estimate 04/18/23 LMP (Certain) 41w 2d PFSH PFSH Medical History (Updated 04/27/23 @ 04:14 by Leny Porter CNM) Anxiety Depression Home Medications PNV-iron 29 mg-folic acid 1 dd-brxtl-1-dha 200 mg oral combo pack 1 pkg PO DAILY 12/11/22 [History Last Taken 04/25/23 08:00 1 pkg] Allergy/AdvReac Type Severity Reaction Status Date / Time No Known Allergies Allergy Verified 04/26/23 20:10 Family History Grandmother Ovarian cancer Grandfather FH: prostate cancer Social History adopted: No number of children: 1 sexually active: Yes Smoking Status: Former smoker alcohol intake: former details: not while substance use type: does not use caffeine: Yes History 1 Elective abortions Hx Para 0 Spontaneous abortions Hx # Term Pregnancies Ectopic pregnancies Hx # Pregnancies Multiple births # of living children Visit Details Expected Delivery Route/Plan Labor Preferences- CB/BF classes: encouraged labor support person: Doug labor intervention preferences: none pain management options preferred: epidural cut cord/dad catch: no : yes PP control planned: discussed discussed possible routes of delivery and associated risks: [] special requests: [] Plans Covid status: [] Flu vaccine: declines Tdap vaccine: given 01/27/23 Rhogam: NA LARC form signed: yes Problem list reviewed and updated with the most current plan of care details and appropriate orders placed. Relevant counseling for the gestational age provided. Continue routine care and follow up unless otherwise noted in visit notes/problem list details OB Flowsheet Initial Weight: Not Recorded Date -?-?-?-?-?-?-?-?-?-?-?-?- EGA Weight BP Urine Prot -?-?-?-?-?-?-?-?-?-?-?-?- Glucose FHR FuHt Pres Dilation -?-?-?-?-?-?-?-?-?-?-?-?- Effaced St Visit Note 12/18/22 -?-?-?-?-?-?-?-?-?-?-?-?- 22w 5d 188 lb 4 oz 100/67 Nega tive -?-?-?-?-?-?-?-?-?-?-?-?- Negative 138 22 -?-?-?-?-?-?--?-?-?-?-?-?- LC- [facility] from [facility]. anatomy completed last week, to obtain report. LC- KYLA[facility] from [facility]. no vb/ cramping. oriented to practice. no concerns. + fm 01/13/23 -?-?-?-?-?-?-?-?-?-?-?-?- 26w 3d 195 lb 8 oz 118/84 Nega tive -?-?-?-?-?-?-?-?-?-?-?-?- Negative 149 -?-?-?-?-?-?-?-?-?-?-?-?- MH-No VB, LOF. G oadrianne FM. Has nasal congestion, hdout for OB meds given. FF. Larc 01/27/23 -?-?-?-?-?-?-?-?-?-?-?-?- 28w 3d 198 lb 4 oz 124/82 Nega tive -?-?-?-?-?-?-?-?-?-?-?-?- Negative 147 28 -?-?-?-?-?-?-?-?-?-?-?-?- MH-NO VB, LOF. G ood FM. Tdap given. Needs 3 hr GTT 02/12/23 -?-?-?-?-?-?-?-?-?-?-?-?- 30w 5d 197 lb 4 oz 114/74 Nega tive -?-?-?-?-?-?-?-?-?-?-?-?- Negative 134 30 -?-?-?-?-?-?-?-?-?-?-?-?- JV- pt has a sor e throat and a cough that is getting worse. covid swab was negative. still needs a 3 hr. amoxicillin ordered. 02/23/23 -?-?-?-?-?-?-?-?-?-?-?-?- 32w 2d 202 lb 2 oz 112/76 Nega tive -?-?-?-?-?-?-?-?-?-?-?-?- Negative 145 31 -?-?-?-?-?-?-?-?-?-?-?-?- KW-no vb/lof/craniologist mping. good fm. discussed getting 3 hour done, plans to do it 03/11/23 -?-?-?-?-?-?-?-?-?-?-?-?- 34w 4d 206 lb 4 oz 111/78 Nega tive -?-?-?-?-?-?-?-?-?-?-?-?- Negative 145 34 -?-?-?-?-?-?-?-?-?-?-?-?- kw-no vb/lof/ctx . good fm. passed 3 hour gct. 03/24/23 -?-?-?-?-?-?-?-?-?-?-?-?- 36w 3d 208 lb 6 oz 115/75 Nega tive -?-?-?-?-?-?-?-?-?-?-?-?- Negative 150 36 -?-?-?-?-?-?-?-?-?-?-?-?- LC- no vb/ctx/lo f. good fm. gbs collected. LC- no vb/ctx/lof. good fm. gbs collected. traveling to [place],precautions given. 04/01/23 -?-?-?-?-?-?-?-?-?-?-?-?- 37w 4d 215 lb 122/76 Negative -?-?-?-?-?-?-?-?-?-?-?-?- Negative 150 38 Cephalic -?-?-?-?-?-?-?-?-?-?-?-?- SM- no vb lof go od fm no regular ctx 04/09/23 -?-?-?-?-?-?-?-?-?-?-?-?- 38w 5d 219 lb 124/76 -?-?-?-?-?-?-?-?-?-?-?-?- 135 39 Cephalic -?--?-?-?-?-?-?-?-?-?-?-?- LC- no vb/ctx/lo f. good fm. LC- no vb/ctx/lof. good fm.n o concerns today. 04/14/23 -?-?-?-?-?-?-?-?-?-?-?-?- 39w 3d 216 lb 8 oz 124/82 Nega tive -?-?-?-?-?-?-?-?-?-?-?-?- Negative 137 39.5 Cephalic -?-?-?-?-?-?-?-?-?-?-?-?- JV- no lof, vagi nal bleeding, or dec fm. discussed 41 week IOL 04/21/23 -?-?-?-?-?-?-?-?-?-?-?-?- 40w 3d 218 lb 113/74 Negative -?-?-?-?-?-?-?-?-?-?-?-?- Negative 145 40 Cephalic 0 -?-?-?-?-?-?-?-?-?-?-?-?- JV- no lof, vagi nal bleeding, or dec fm. planning IOL wednesday if l&d available. NST FHR Rate Baby A Baseline: 130 Variability:: Moderate Accelerations:: 15 x 15 Decelerations:: None NST Reactive:: Yes FHR Category:: Category I Uterine Activity:: irregular ROS Cardiovascular Cardiovascular: Denies abdominal pain, chest pain, diaphoresis or dyspnea Respiratory/Chest Respiratory/Chest: Denies change in mental status, chest congestion, chest tightness, cough, shortness of breath at rest, shortness of breath with exertion, breast mass, breast pain, breast skin changes, breast swelling, change in breast shape or nipple discharge Genitourinary Genitourinary: Reports change in urinary stream Musculoskeletal Musculoskeletal: Reports none Integumentary Integumentary: Reports none Neurologic Neurologic: Reports none Psychiatric Psychiatric: Reports none Endocrine Endocrinology: Reports none Hematologic/Lymphatic Hematologic/Lymphatic: Reports none Allergic/Immunologic Allergic/Immunologic: Reports none Vital Signs Vital Signs Vital Signs: 04/26/23 19:25 04/26/23 19:26 04/26/23 19:26 Temperature Temperature Source Temporal Pulse Rate 117 H Blood Pressure 130/79 H BP Systolic 130 BP Diastolic 79 Pulse Ox 04/26/23 19:25 04/26/23 19:25 04/27/23 00:06 Temperature 99.8 F H Temperature Source Tympanic Pulse Rate Blood Pressure BP Systolic BP Diastolic Pulse Ox 97 04/27/23 00:06 04/27/23 00:06 04/27/23 00:06 Temperature Temperature Source Pulse Rate 86 Blood Pressure 126/76 H BP Systolic 126 BP Diastolic 76 Pulse Ox 99 04/27/23 00:06 Temperature 99.1 F Temperature Source Pulse Rate Blood Pressure BP Systolic BP Diastolic Pulse Ox Weight Weight: 222 lb 10.67 oz Body Mass Index (BMI) 35.9 Physical Exam Const alert, oriented x3 and no apparent distress General Appearance: cooperative, comfortable and well kempt Orientation / Consciousness: awake and oriented to person Exam Limitations: no limitations HEENT normocephalic Neck full ROM Resp normal respiratory effort, normal air movement and no retractions Effort and Inspection: able to speak in complete sentences and symmetric chest movement Cardio regular rate and regular rhythm Peripheral Pulses: pulses 2+ throughout GI Inspection: gravid Manual OB Exam: estimated gestational size appropriate and presentation cephalic Uterus Palpation: Negative for uterus tender Extremity normal to inspection Skin no rashes or lesions noted Neuro deep tendon reflexes 2+ bilaterally and gait normal Motor Exam: strength 5/5 throughout and clonus absent Psych Activity / Motor Behavior: appropriate eye contact Speech: normal speech Labs Labs Labs: Blood Type O POSITIVE Antibody Screen NEGATIVE Hct 43.4 % (37-47) Hgb 14.9 g/dL (12.0-15.0) Syphilis Total Ab Non-reactive VZV IgG Antibody < 135 index (Immune >165) L Rubella IgG Antibody Reactive (Nonreactive) Hep Bs Antigen Non-Reactive (Nonreactive) Hepatitis C Antibody Non-Reactive (Nonreactive) HIV 1&2 Antibody Non-Reactive (Nonreactive) Glucose 1 Hr 50 gm 172 mg/dL (70-140) H Gest Glucose Tolerance MG/DL Group B Strep DNA Negative (Negative) Miscellaneous Test Assessment & Plan (1) Encounter for induction of labor: COMMENT: 41.1 cytotec induction PLAN: routine admission orders cytotec 25mcg PV q4 hours (2) Depression with anxiety: COMMENT: No meds now. Past zoloft. Stable (3) Family history of spina bifida: COMMENT: 800mcg folic acid (4) : QUALIFIERS: Weeks of gestation: 40 weeks Qualified Code(s): Z3A.40 - 40 weeks gestation of COMMENT: nl anatomy, low risk nipt declined carrier, afp. neg gbs (5) Supervision of normal first : QUALIFIERS: Trimester: second trimester Qualified Code(s): Z34.02 - Encounter for supervision of normal first , second trimester COMMENT: PRR PARMINDER 07/12/2022. girl partner:Doug PLAN: Plan Dr. Lal updated on admission, exam and poc and agress with primary midwifery management for low risk pt, available as needed.
[2023-04-27] MEDS: LACTATED RINGERS 500 ML 999 ML IV ×2 (05:25→07:20)
[2023-04-27] MEDS: Amnioinfusion- 0.9% NS 1,000 ML IV.SOLN. 1000 ML INTRA-UTER (06:51)
[2023-04-27] MEDS: Acetaminophen 500 MG Tablet PO (07:32)
--- NOTE | 2023-04-27 08:24 | PN_ITS ---
Progress Note Coping well with contractions-using Nitrous oxide-requesting epidural current tracing: FHT: 125 Moderate variability reactive occasional early decelerations category II tracing Wentworth: 1-4 minute Contractions Membranes:SROM 0430 clear SVE:2.5/70 per last exam reviewed tracing abnormalities since last note: collaboration with Dr Tashi palmer at this time for Cat II FHT tracing. Resolving with amnioinfusion and IV fluid bolus interventions. Continue current plan of care A/P: Continue with position changes Start/Titrate pitocin per protocol if needed. Epidural per anesthesia Anticipate Dr Moscoso aware of above assessment and agrees with plan of care Assessment & Plan Assessment/Plan (1) Encounter for induction of labor: (2) Abnormal glucose affecting : (3) Depression with anxiety: (4) Family history of spina bifida: (5) : QUALIFIERS: Weeks of gestation: 40 weeks Qualified Code(s): Z3A.40 - 40 weeks gestation of (6) Supervision of normal first : QUALIFIERS: Trimester: second trimester Qualified Code(s): Z34.02 - Encounter for supervision of normal first , second trimester Multi Select Codes Urinary/Genital Urinary/Genital CPT Codes: No Charge
[2023-04-27] MEDS: fentaNYL-bupivacaine (epidural) 100 ML BAG EPIDURAL (09:05)
--- NOTE | 2023-04-27 10:30 | PN_ITS ---
Progress Note comfortable with epidural current tracing: FHT: 135 Moderate variability reactive early vs late decelerations category II tracing [place]iarada: 2-5 minute Contractions Membranes: SROM 0430 remains clear SVE:3.5//-1 reviewed tracing abnormalities since last note: collaboration with Dr Moscoso at this time for Cat II FHT tracing. SHe reviewed tracing from office. will continue to monitor. IUPC and FSE in place. Amnioinfusion at 125cc/hr A/P: Continue with position changes Titrate pitocin per protocol Epidural per anesthesia Anticipate PCS vs Dr Moscoso aware of above assessment and agrees with plan of care Assessment & Plan Assessment/Plan (1) Encounter for induction of labor: (2) Abnormal glucose affecting : (3) Depression with anxiety: (4) Family history of spina bifida: (5) : QUALIFIERS: Weeks of gestation: 40 weeks Qualified Code(s): Z3A.40 - 40 weeks gestation of (6) Supervision of normal first : QUALIFIERS: Trimester: second trimester Qualified Code(s): Z34.02 - Encounter for supervision of normal first , second trimester Multi Select Codes Urinary/Genital Urinary/Genital CPT Codes: No Charge
[2023-04-27] MEDS: CHLORHEXIDINE GLUC 2% CLOTH 1 EACH TOWELETTE TOPICAL (10:45)
[2023-04-27] MEDS: Sodium Citrate/Citric Acid 30 ML UDC PO (11:04)
--- NOTE | 2023-04-27 11:06 | PCM.PN.BLA ---
Progress Note second amnioinfusion given, hands and knees, signficiant molding of head and still 3-4 90/-2 recurrent periodic variables. discussed options and plan for proceeding with primary after failed interventions for over an hour to resolve cat II tracing and remote from delivery. patient agrees
[2023-04-27] MEDS: Cefazolin 2 GM in 0.9% Normal Saline (100mL Bag) 100 ML IV (11:10)
--- NOTE | 2023-04-27 11:55 | OP.PCM_ITS ---
Assessment & Plan (1) Category II heart rate tracing during labor and delivery: COMMENT: recurrent periodic variables remote from delivery 3-4 cm, nuchal cord x1 head with significant molding in pelvis (2) Encounter for induction of labor: COMMENT: 41.1 cytotec induction (3) Abnormal glucose affecting : COMMENT: Nl 3 hr GTT (4) Depression with anxiety: COMMENT: No meds now. Past zoloft. Stable (5) Family history of spina bifida: COMMENT: 800mcg folic acid (6) : QUALIFIERS: Weeks of gestation: 40 weeks Qualified Code(s): Z3A.40 - 40 weeks gestation of COMMENT: nl anatomy, low risk nipt declined carrier, afp. neg gbs (7) Supervision of normal first : QUALIFIERS: Trimester: second trimester Qualified Code(s): Z34.02 - Encounter for supervision of normal first , second trimester COMMENT: PRR PARMINDER 07/12/2022. girl partner:Doug Maternal Data Information PARMINDER Calculator Estimated Delivery Date Method Current WG Current Estimate 04/18/23 LMP (Certain) 41w 2d Details Operative Information Date of Procedure: 04/27/23 Pre-Operative Diagnosis: see a/p diagnoses Post-Operative Diagnosis: same Indications Narrative: surgeon: Adina Moscoso MD Procedure Type: low transverse photo stylist #1: Andres Hightower Type of Anesthesia: Epidural Special Medications: none Drain: Chou to straight drain Estimated Blood Loss: 600 Fluids Replaced: crystalloid Procedure Start Time: 11:20 Procedure Stop Time: 11:51 Findings Description of Procedure: The patient was placed in the dorsal supine position with leftward tilt. Patient was prepped and draped in the normal sterile fashion. Pfannenstiel skin incision was made with the scalpel and carried through to the underlying layer of fascia with the scalpel. Fascia was nicked in the midline and the incision extended laterally. The rectus bellies were dissected off superiorly and inferiorly with out complication both sharply and bluntly. The peritoneum was entered digitally. The incision was stretched and a low transverse uterine incision was made with the scalpel. The 's head was delivered atraumatically followed by the anterior and posterior shoulders without complication the rest of the delivered. The cord was clamped and cut and the was handed off to awaiting nurse. The placenta was delivered spontaneously immediately following and was noted to be intact and have a three- vessel cord. The uterus was exteriorized cleared of all clots and debris, and the incision was closed in a single layer closure using #1 Monocryl. The ovaries and fallopian tubes were noted to be within normal limits. The uterus was returned to the maternal abdomen and gutters were cleared of all clots and debris. The peritoneum was closed with 3-0 Monocryl in a running fashion. Stacie ves were changed prior to fascial closure. Fascia was closed with 0 PDS in a running fashion. Subcutaneous tissue was copiously irrigated and the skin was closed with 3-0 Monocryl in a subcuticular fashion. Mepilex dressing was applied without complication. Patient was taken to recovery in stable condition. It was discussed with the patient that based on the clinical information obtained during this encounter, combined with her history, at this time I would recommend vaginal or for future deliveries if further pregnancies are desired. Placental Delivery Description: Spontaneous Placenta Disposition: [facility] Cord Vessel Description: 3 Vessels Cord Entanglement: Around neck x 1, tight Delayed Cord Clamping: Yes Complications Risks of Surgery Discussed w/Patient: Bleeding, Infection, Need for Future C- Sections and Injury to surrounding structure(s) including bowel and bladder Complications: none Admit VTE Documentation VTE Present on Admission: No VTE Mechan Device Prophylaxis: SCD's Procedures Urinary/Genital [id number]: [id number] Delivery [facility]
[2023-04-27] MEDS: Azithromycin 500 MG in Dextrose 5%-Water (250mL Bag) 250 ML 250 MG IV (12:00)
[2023-04-27] MEDS: Oxytocin 15 Units/NS 250ml 15 UNITS/250 ML IV.SOLN 83 UNITS IV (12:30)
--- NOTE | 2023-04-27 12:34 | DCINST_ITS ---
Discharge Instructions Diet Discharge Diet: No restrictions Activity Discharge Activity: May Not Drive (for 2 weeks or while taking narcotic pain medications.), May Shower and May Take a Tub Bath (in 7 days) May shower in (days): 0 May resume sexual activity in: 4-6 weeks Weight Bearing Status: Full weight bearing Lifting Restrictions: 20 pounds Dressing / Incision Call your doctor if your incision/area has: Continuous Slow Oozing, Sudden Increased Bleeding, Increased Pain/ Swelling, Increased Redness and Foul Smelling Discharge Call your doctor if you observe: Fever of 101 or Higher and Using more than 1 pad per hour (for 2 hours) Suture Line Care: Avoid Pulling/Pushing and Avoid Pinching/Bending Cleanse incision/area with: Soap & Water and Keep Dressing Clean & Dry Follow Up Care Please Follow Up With: Adina Moscoso MD When: Call [phone] to make an appointment for an incision check in 1-2 weeks. Test Results: Test results from this visit will be discussed in further detail at your follow- up appointment, if applicable. Discharge Plan Admission Admit Date/Time: 04/26/23 19:08 Attending Provider: Adina Moscoso Primary Care Provider: Care PhysicianSteph Primary Discharge Orders/Prescriptions Prescriptions: New oxycodone-acetaminophen [Percocet] 5-325 mg tablet 1 tab PO Q6H PRN (Reason: pain) 7 Days Qty: 20 0RF naproxen [naproxen] 500 mg tablet 500 mg PO BID PRN PRN (Reason: Pain) Qty: 30 1RF No Action PNV cmb 45-uynq-DL-omega-3-dha 29 mg iron- 1 mg-200 mg combo pack 1 pkg PO DAILY Referrals / Follow Up: Care PhysicianSteph Primary [Primary Care Provider] - Disposition Disposition (needs filled in before D/C Order can be placed): Home, Self Care
[2023-04-27] MEDS: Ketorolac 30 MG/ML Syringe IV ×2 (13:41→19:47)
[2023-04-27] MEDS: Ondansetron 4 MG/2 ML Vial IV (16:35)
[2023-04-27] MEDS: Lactated Ringers 1,000 ML 100 ML IV (16:36)
[2023-04-27] MEDS: Acetaminophen 500 MG Tablet 1000 MG PO (18:12)
--- NOTE | 2023-04-27 18:48 | NURSING ---
Pt unable to ambulate at this time - pt feels high right now - VSS - bleeding appropriate - gave pt juice and crackers.
[2023-04-27] MEDS: proCHLORPERazine 10 MG/2 ML Vial IV (19:44)
[2023-04-28] MEDS: Acetaminophen 500 MG Tablet 1000 MG PO ×4 (00:12→19:08)
[2023-04-28 00:18] VITALS: BP 121/69; PULSE 82; RESP 14; TEMP 36.4; O2SAT 97
[2023-04-28] MEDS: Enoxaparin 40 MG/0.4 ML Syringe SC (01:30)
[2023-04-28] MEDS: 0.9% Saline Lock 10 ML Syringe IV (01:31)
[2023-04-28] MEDS: Ketorolac 30 MG/ML Syringe IV ×2 (01:31→08:05)
[2023-04-28 05:30] VITALS: BP 100/62; PULSE 81; RESP 16; TEMP 36.7; O2SAT 98
[2023-04-28 05:59] LABS: Hemoglobin 11.9 g/dL (12.0-15.0); Mean Corpuscular Hgb 31.1 pg (27.0-32.0); Mean Corpuscular Volume 91.4 fL (81-99); Mean Platelet Vol. 11.2 fl (6.2-12.0); Platelet Count 198 K/mm3 (150-450); RBC Distribution Width CV 12.7 % (11.6-14.6); Red Blood Count 3.83 M/mm3 (4.2-5.4); White Blood Count 19.8 K/mm3 (4.4-11.0)
--- NOTE | 2023-04-28 08:14 | PCM.PN.OB ---
Subjective Subjective Patient is laying in bed comfortably without complaints. Pain is a 3 today. She states that she slept on an off during the night. Lochia is mild and pain is minimal. Objective Data Objective Data Vital Signs: Vital Signs Temp Pulse Resp BP Pulse Ox O2 Del Method 98.1 F 81 16 100/62 98 Room Air 04/28/23 05:30 04/28/23 05:30 04/28/23 05:30 04/28/23 05:30 04/28/23 05:30 04/28/23 05:30 Oxygen Delivery Method Room Air Weight: 222 lb 10.67 oz Body Mass Index (BMI) 35.9 Intake & Output: Intake and Output for Last 24 Hours 04/26/23 04/27/23 04/28/23 23:59 23:59 23:59 Intake Total 66.67 / 66.67 3312.33 / 3312.33 0 / 0 Output Total 2400 / 2400 250 / 250 Balance 66.67 / 66.67 912.33 / 912.33 -250 / -250 Lab / Micro Data 04/28/23 05:45 Labs: Laboratory Results - last 24 hr 04/28/23 05:45: WBC 19.8 H, RBC 3.83 L, Hgb 11.9 L, Hct 35.0 L, MCV 91.4, MCH 31.1, MCHC 34.0, RDW Std Deviation 42.0, RDW Coeff of Tara 12.7, Plt Count 198, MPV 11.2 Micro: Microbiology 04/27/23 01:28 Urine, Clean Catch Chlamydia trachomatis (PCR) - Final 04/27/23 01:28 Urine, Clean Catch Neisseria gonorrhoeae (PCR) - Final ROS Constitutional Constitutional: Reports systems reviewed and no addt'l complaints, except as documented Cardiovascular Cardiovascular: Denies chest pain, dizziness, dyspnea or irregular heart rhythm Respiratory/Chest Respiratory/Chest: Denies cough, pain on inspiration or shortness of breath at rest Gastrointestinal Gastrointestinal: Denies abdominal pain, nausea or vomiting Genitourinary Genitourinary: Denies burning urination Musculoskeletal Musculoskeletal: Denies muscle cramps, muscle spasms or muscle weakness Neurologic Neurologic: Denies confusion, dizziness, headache(s) or lack of coordination Psychiatric Psychiatric: Denies anxiety, behavioral changes or depression Physical Exam HEENT normocephalic Resp normal respiratory effort and normal air movement GI soft to palpation, non-tender and non-distended Rectal Exam: other Other Details: Incision is clean, dry, and intact no CVA tenderness Extremity normal to inspection General Extremity: edema bilateral (trace ) Assessment & Plan (1) delivery delivered: COMMENT: KW/SM LTCS recurrent decels. 4 cm girl Rylynn (2) Depression with anxiety: COMMENT: No meds now. Past zoloft. Stable PLAN: Plan s/p LTCS PPD # 1 1. routine post care 2. breast feeding- support given 3. rh positive 4. rubella immune
[2023-04-28 08:31] VITALS: BP 111/76; PULSE 98; RESP 14; TEMP 36.2; O2SAT 98
[2023-04-28 12:00] VITALS: BP 114/71; PULSE 83; RESP 16; O2SAT 99
[2023-04-28] MEDS: Senna/Docusate Sodium 1 Tablet PO (12:04)
[2023-04-28] MEDS: Naproxen 500 MG Tablet PO ×2 (14:29→22:30)
[2023-04-28 17:30] VITALS: BP 115/68; PULSE 77; RESP 14; O2SAT 100
[2023-04-28 20:17] VITALS: BP 115/71; PULSE 83; RESP 16; TEMP 36.7; O2SAT 98
[2023-04-28] MEDS: oxyCODONE 5 MG Tablet PO (22:33)
[2023-04-29] MEDS: Acetaminophen 500 MG Tablet 1000 MG PO ×3 (01:11→13:07)
[2023-04-29] MEDS: Enoxaparin 40 MG/0.4 ML Syringe SC (01:11)
[2023-04-29 03:06] VITALS: BP 120/74; PULSE 85; RESP 16; TEMP 36.4; O2SAT 97
[2023-04-29] MEDS: Naproxen 500 MG Tablet PO ×2 (06:02→14:22)
--- NOTE | 2023-04-29 07:53 | PCM.PN.OB ---
Subjective Subjective Patient doing well without complaints. Tolerating PO. Ambulating and voiding without difficulty. Feeding well. Denies chest pain, shortness of breath, calf pain/swelling, fevers, chills, lightheadedness. Objective Data Objective Data Vital Signs: Vital Signs Temp Pulse Resp BP Pulse Ox O2 Del Method 97.5 F L 85 16 120/74 97 Room Air 04/29/23 03:06 04/29/23 03:06 04/29/23 03:06 04/29/23 03:06 04/29/23 03:06 04/29/23 03:06 Oxygen Delivery Method Room Air Weight: 222 lb 10.67 oz Body Mass Index (BMI) 35.9 Intake & Output: Intake and Output for Last 24 Hours 04/27/23 04/28/23 04/29/23 23:59 23:59 23:59 Intake Total 3312.33 / 3312.33 0 / 0 Output Total 2400 / 2400 750 / 750 Balance 912.33 / 912.33 -750 / -750 Lab / Micro Data 04/28/23 05:45 Micro: Microbiology 04/27/23 01:28 Urine, Clean Catch Chlamydia trachomatis (PCR) - Final 04/27/23 01:28 Urine, Clean Catch Neisseria gonorrhoeae (PCR) - Final Physical Exam Const alert and oriented x3 HEENT normocephalic Eyes PERRL Neck full ROM Resp normal respiratory effort GI soft to palpation GI Narrative: FF below U. Dressing dry and intact Palpation: tender other (appropriately) Assessment & Plan (1) delivery delivered: COMMENT: KW/SM LTCS recurrent decels. 4 cm girl Rylynn (2) Depression with anxiety: COMMENT: No meds now. Past zoloft. Stable PLAN: Plan s/p LTCS PPD # 2 1. routine post care 2. breast feeding- support given 3. rh positive 4. rubella immune 5. home today
[2023-04-29 09:00] VITALS: BP 123/79; PULSE 90; RESP 16; TEMP 37.2; O2SAT 98
[2023-04-29] MEDS: Senna/Docusate Sodium 1 Tablet PO (11:46)
[2023-04-29] MEDS: oxyCODONE 5 MG Tablet PO (11:46)
[2023-04-29 14:24] VITALS: BP 123/74; PULSE 79; RESP 16; TEMP 36.6; O2SAT 97
--- NOTE | 2023-05-02 17:44 | DS.PCM_ITS ---
Providers Date of Admission: 04/26/23 Primary Care Physician: No Primary Care Phys Reason For Visit: PRIMARY Diagnosis Discharge Diagnosis (1) delivery delivered: Status: Acute Code(s): O82 - Encounter for delivery without indication (2) Depression with anxiety: Status: Acute Code(s): F41.8 - Other specified anxiety disorders Plan s/p LTCS PPD # 2 1. routine post care 2. breast feeding- support given 3. rh positive 4. rubella immune 5. home today Medications at Discharge Home Medications PNV-iron 29 mg-folic acid 1 fm-fvhbc-1-dha 200 mg oral combo pack 1 pkg PO DAILY 12/11/22 naproxen 500 mg tablet 500 mg PO BID PRN PRN Pain #30 tabs 04/27/23 oxycodone-acetaminophen 5 mg-325 mg tablet (Percocet) 1 tab PO Q6H PRN pain 7 days #20 tabs 04/27/23 Hospital Course Operations section Summary of Care Provided Hospital Course: Patient underwent section with routine recovery, return of normal bowel and bladder function. Ambulating, voiding and tolerating PO. Stable for discharge home POD #3. Weight / BMI Weight Weight: 222 lb 10.67 oz Body Mass Index (BMI) 35.9 ABG / Lab / Microbiology Data 04/28/23 05:45 Microbiology: Microbiology 04/27/23 01:28 Urine, Clean Catch Chlamydia trachomatis (PCR) - Final 04/27/23 01:28 Urine, Clean Catch Neisseria gonorrhoeae (PCR) - Final D/C Instructions Discharge Diet: No restrictions May shower in (days): 0 May resume sexual activity in: 4-6 weeks Weight Bearing Status: Full weight bearing Call your doctor if your incision/area has: Continuous Slow Oozing, Sudden Increased Bleeding, Increased Pain/ Swelling, Increased Redness and Foul Smelling Discharge Call your doctor if you observe: Fever of 101 or Higher and Using more than 1 pad per hour (for 2 hours) Suture Line Care: Avoid Pulling/Pushing and Avoid Pinching/Bending Cleanse incision/area with: Soap & Water and Keep Dressing Clean & Dry Please Follow Up With: Adina Moscoso MD When: Call [phone] to make an appointment for an incision check in 1-2 week s. Meaningful Use Info Meaningful Use Diagnoses (Choose all that apply): None applicable Discharge Plan Admission Admit Date/Time: 04/26/23 19:08 Attending Provider: Adina Moscoso Primary Care Provider: Care Physician,Steph Primary Instructions Patient Instructions: After a Discharge Orders/Prescriptions Prescriptions: New oxycodone-acetaminophen [Percocet] 5-325 mg tablet 1 tab PO Q6H PRN (Reason: pain) 7 Days Qty: 20 0RF naproxen [naproxen] 500 mg tablet 500 mg PO BID PRN PRN (Reason: Pain) Qty: 30 1RF No Action PNV cmb [id number]-3-dha 29 mg iron- 1 mg-200 mg combo pack 1 pkg PO DAILY Referrals / Follow Up: Care Physician,No Primary [Primary Care Provider] - Disposition Disposition (needs filled in before D/C Order can be placed): Home, Self Care
== END 2023-04-29 17:15 | disposition home or self-care (01) | DRG 788 ==
PROVIDERS: Admitting Provider Registered Nurse; Referring Provider Obstetrics & Gynecology; Visit Provider Obstetrics & Gynecology
DX: O48.0 Post-term pregnancy (principal); O69.1XX0 Labor and delivery complicated by cord around neck, with compression, not applicable or unspecified; Z3A.40 40 weeks gestation of pregnancy; Z37.0 Single live birth; Z87.891 Personal history of nicotine dependence; O76 Abnormality in fetal heart rate and rhythm complicating labor and delivery
CPT/HCPCS: 59025; 59050; 85025; 85027; 86780; 86850; 86900; 86901; 87491; 87591; 99221; J7030; J7120; A4216; G0378; J2405